=== PATIENT | male | born 1940 | race Caucasian/White ===

== ENCOUNTER 2016-04-12 13:34 | Emergency (ER) | payer OTHER | END 2016-04-12 14:12 | disposition home or self-care (01) | LOC: ER 13:34 | DX: S80.12XA Contusion of left lower leg, initial encounter (principal); J44.9 Chronic obstructive pulmonary disease, unspecified; Z79.899 Other long term (current) drug therapy; Z79.82 Long term (current) use of aspirin; W19.XXXA Unspecified fall, initial encounter ==